=== PATIENT | female | born 1955 | race Caucasian/White ===

== ENCOUNTER 2022-10-05 11:21 | Emergency (ER) | payer MEDICARE ==
[2022-10-05] MEDS ORDERED: Morphine 4 MG/ML VIAL ONE (13:52)
[2022-10-05] MEDS ORDERED: Ketorolac Tromethamine 30 MG/ML VIAL ONE (13:52)
== END 2022-10-05 14:50 | disposition home or self-care (01) ==
LOC: ERS 11:21
DX: S32.030A Wedge compression fracture of third lumbar vertebra, initial encounter for closed fracture (principal); M25.551 Pain in right hip; F17.210 Nicotine dependence, cigarettes, uncomplicated; W19.XXXA Unspecified fall, initial encounter
CPT/HCPCS: 72100; 93005; 96372; J1885; J2270

== ENCOUNTER 2024-05-02 09:14 | Emergency (ER) | payer MEDICARE ==
[2024-05-02] MEDS ORDERED: Aspirin Chewable 81 MG TAB ONE (10:20)
[2024-05-02 10:33] LABS: #Basophils Less than 0.03 10x3/uL (0.0-0.2); %Basophils 0.2 % (0.0-1.0); %Eosinophils 0.6 % (0.0-10.0); %Lymphocytes 8.6 % (21.0-51.0); %Monocytes 5.7 % (0.0-10.0); %Neutrophils 84.5 % (42.0-75.0); Hematocrit 32.8 % (36.0-47.0); Hemoglobin 10.6 g/dL (12.0-16.0); Mean Corpuscular HGB CONC 32.3 g/dL (32.0-36.0); Mean Corpuscular Volume 95.9 fL (78.0-98.0); Mean Platelet Volume 9.8 fL (7.4-10.4); Platelet Count 228 10x3/uL (130-400); RBC Distribution Width 13.4 % (11.5-14.5); Red Blood Cell (RBC) Count 3.42 mill/uL (4.20-5.40)
[2024-05-02 10:39] LABS: INR-International Normal Ratio 1.2; Prothrombin Time 14.9 sec (12.0-14.7)
[2024-05-02 10:46] LABS: ALT (SGPT) 11 U/L (Less than 34); AST (SGOT) 19 U/L (11-34); Albumin 2.5 g/dL (3.1-4.5); Alkaline Phosphatase 40 U/L (40-110); Anion Gap 12 mmol/L (10-20); BUN (Urea Nitrogen) 15 mg/dL (9.8-20.1); Bilirubin, Total 0.2 mg/dL (0.3-1.2); Calc. Creatinine Clearance 0 mL/min (70-130); Calcium 7.9 mg/dL (7.8-10.44); Carbon Dioxide 19 mmol/L (23-31); Chloride 109 mmol/L (98-107); Estimated GFR 97; Globulin 2.4 g/dL (2.4-3.5); Glucose 117 mg/dL (80-115); Potassium 3.9 mmol/L (3.5-5.1); Protein, Total 4.9 g/dL (5.8-8.1); Sodium 136 mmol/L (136-145)
[2024-05-02 10:51] LABS: Troponin I 0.023 ng/mL (< 0.028)
[2024-05-02 11:10] LABS: Acetaminophen Less than 10 mcg/mL (Less than 10); Alcohol Less than 10.0 mg/dL (Less than 10); Salicylate Less than 8.0 mg/dL (Less than 8.0)
[2024-05-02] MEDS ORDERED: Iopamidol-370 76% 500 ML MDV (1 ML CHARGE) ONE (12:33)
[2024-05-02] MEDS ORDERED: Nicotine 14 MG PATCH ONE (16:15)
== END 2024-05-02 17:00 | disposition short-term general hospital (02) ==
LOC: ERS 09:14
DX: R47.81 Slurred speech (principal); F17.210 Nicotine dependence, cigarettes, uncomplicated; R29.700 NIHSS score 0
CPT/HCPCS: 0042T; 70450; 70496; 70498; 71045; 80053; 80307; 82962; 84484; 85025; 85610; 85730; 93005; 94760; 99285; 36415; 36416; Q9967